=== PATIENT | female | born 1930 | race Caucasian/White ===

== ENCOUNTER 2021-05-22 13:00 | Emergency (ER) | payer OTHER ==
--- OUTSIDE RECORDS SUMMARY | 2021-05-22 13:02 | XMS REPORT | Continuity of Care Document ---
:1930 Author Organization [facility] t Address [address] [place] [address] Care Team Providers Name Role Phone Unavailable Unavailable Unavailable Problems This patient has no known problems. Allergies, Adverse Reactions, Alerts This patient has no known allergies or adverse reactions. Medications This patient has no known medications. Procedures This patient has no known procedures. Encounters Start End Encounter Admission Attending Care Care Encounter Source Date/Time Date/Time Type Type Clinicians Facility Department ID 2021-05-06 2021-05-06 Outpatient [facility] [id number] 00:00:00 00:00:00 [facility] 2021-04-20 2021-04-20 Outpatient [facility] [id number] [facility] Results This patient has no known results.
--- NOTE | 2021-05-22 15:58 | RAD REPORT ---
EXAM DESCRIPTION: CT - Spine Lumbar Wo Con - 05/22/2021 3:29 pm CLINICAL HISTORY: Radiculopathy. fall, back pain COMPARISON: No comparisons TECHNIQUE: Axial noncontrast CT imaging of the lumbar spine was performed with coronal and sagittal re-formatted images. All CT scans are performed using dose optimization technique as appropriate and may include automated exposure control or mA/KV adjustment according to patient size. FINDINGS: No acute lumbar spine fracture seen. No aggressive marrow pattern or malalignment. Paraspinal tissues are normal in thickness. No paraspinal abscess or hematoma seen. Posterior disc bulging is seen throughout the lower levels of the lumbar spine. There is likely a sig nificant central canal stenosis at L5-S1. Cholelithiasis. IMPRESSION: No acute lumbar spine abnormality is discerned. Moderate lower lumbar degenerative changes are present with probable central canal stenosis at L5-S1. Cholelithiasis.
--- NOTE | 2021-05-22 16:01 | RAD REPORT ---
EXAM DESCRIPTION: CT - Pelvis Wo Cont - 05/22/2021 3:29 pm CLINICAL HISTORY: BLUNT TRAUMA Trauma, pelvic pain. COMPARISON: No comparisons TECHNIQUE: All CT scans are performed using dose optimization technique as appropriate and may inclu de automated exposure control or mA/KV adjustment according to patient size. FINDINGS: Mild nondisplaced fracture is seen in the inferior sacrum and coccygeal region. Sacroiliac joints are symmetric and intact. No pelvic free fluid. No pelvic mass or hematoma. Sigmoid diverticulosis is present. IMPRESSION: Mild inferior sacral fracture.
[2021-05-22] MEDS ORDERED: ACETAMINOPHEN 325 MG TABLET ONE (19:40)
[2021-05-22] MEDS ORDERED: MORPHINE 2 MG/ML SYR ONE (19:41)
[2021-05-22] MEDS ORDERED: DIAZEPAM 10 MG/2 ML INJ SYRINGE ONE (19:42)
[2021-05-22] MEDS ORDERED: ONDANSETRON 4 MG/2 ML VIAL ONE (19:42)
--- NOTE | 2021-05-22 20:27 | EDPHYS ---
Physician Documentation [facility] Name: Joanna Bartholomew Age: 89 yrs Sex: Female : 1930 Arrival Date: 05/22/2021 Time: 13:08 Bed 15 Private MD: Lien Greyh ED Physician Lio Holland HPI: 05/22 14:55 This 89 yrs old Female presents to ER via Wheelchair with complaints of Fall jmm Injury. 14:55 Details of fall: The patient fell from an upright position, while walking. Onset: The jmm symptoms/episode began/occurred acutely, 2 day(s) ago. Associated injuries: The patient sustained injury to the low back. The patient has not experienced similar symptoms in the past. Is an 89-year-old female with history of hypertension the presents emerged department with acute onset lower back pain after a fall which occurred while she was attempting to wear socks. Patient states that she slipped landing on her back. Denies LOC, vomiting. Patient does not take blood thinners.. Historical: - Allergies: 13:55 No Known Allergies; ll1 - PMHx: 13:55 Hypertensive disorder; ll1 - PSHx: 13:55 hysterectomy; ll1 - Immunization history:: Client reports receiving the 2nd dose of the Covid vaccine, Flu vaccine is up to date. - Social history:: Smoking status: Patient denies any tobacco usage or history of. ROS: 14:55 Constitutional: Negative for fever, chills, and weight loss, Cardiovascular: Negative jmm for chest pain, palpitations, and edema, Respiratory: Negative for shortness of breath, cough, wheezing, and pleuritic chest pain. 14:55 Back: Positive for injury or acute deformity. 14:55 All other systems are negative. Exam: 14:55 Constitutional: This is a well developed, well nourished patient who is awake, alert, jmm and in no acute distress. Head/Face: atraumatic. Eyes: EOMI, no conjunctival erythema appreciated ENT: Moist Mucus Membranes Neck: Trachea midline, Supple Chest/axilla: Normal chest wall appearance and motion. Cardiovascular: Regular rate and rhythm. No edema appreciated Respiratory: Normal respirations, no respiratory distress appreciated Abdomen/GI: Non distended, soft 14:55 Skin: General appearance color normal MS/ Extremity: Moves all extremities, no obvious deformities appreciated, no edema noted to the lower extremities Neuro: Awake and alert, normal gait Psych: Behavior is normal, Mood is normal, Patient is cooperative and pleasant 14:55 Back: pain, that is mild, of the lumbar area. Vital Signs: 13:56 BP 161 / 82; Pulse 60; Resp 17; Temp 97.2; Pulse Ox 100% ; Weight 65.32 kg; Height 4 ll1 ft. 11 in. (149.86 cm); Pain 10/10; 20:47 BP 154 / 75; Pulse 65; Resp 18; Pulse Ox 98% on R/A; ak2 13:56 Body Mass Index 29.08 (65.32 kg, 149.86 cm) ll1 MDM: 18:52 Patient medically screened. [facility] 20:25 Data reviewed: vital signs, nurses notes. Counseling: I had a detailed discussion with marquise the patient and/or guardian regarding: the historical points, exam findings, and any diagnostic results supporting the discharge/admit diagnosis, radiology results, the need for outpatient follow up, to return to the emergency department if symptoms worsen or persist or if there are any questions or concerns that arise at home. 20:33 ED course: CT reveals sacral fracture. Patient denies any urinary or bowel issues [facility] extensor pollicis longus intact bilateral. I do not suspect cord compression or cauda equina. Patient is advised to follow-up with spine and otherwise given strict return precautions. Patient understood and agrees to plan of care.. 05/22 14:54 Order name: CT Lumbar Spine Wo Con; Complete Time: 18:35 rn 05/22 14:54 Order name: CT Pelvis wo Cont; Complete Time: 18:35 rn 05/22 18:53 Order name: Saline Lock [facility] 05/22 19:47 Order name: Misc. Order [facility] Administered Medications: 19:29 Drug: morphine 2 mg Route: IVP; Site: right antecubital; ak2 19:29 Drug: Zofran (Ondansetron) 4 mg Route: IVP; Site: right antecubital; ak2 19:29 Drug: Valium (diazepam) 2 mg Route: IVP; Site: right antecubital; ak2 19:29 Drug: Tylenol 650 mg Route: PO; ak2 19:47 CANCELLED (Duplicate Order): Valium (diazepam) 5 mg IVP once [facility] Disposition Summary: 05/22/21 20:26 Discharge Ordered Location: Home [facility] Condition: Stable [facility] Diagnosis - Low back pain m - Fracture of Sacrum - Nondisplaced jm Followup: jmm - With: Karlo Grey, - When: 2 - 3 days - Reason: Recheck today's complaints, Continuance of care, Re-evaluation by your physician Discharge Instructions: - Discharge Summary Sheet [facility] - Acute Back Pain, Adult [facility] Forms: - Medication Reconciliation Form [facility] - Thank You Letter [facility] - Antibiotic Education [facility] - Prescription Opioid Use [facility] Prescriptions: - Ultracet 37.5-325 mg Oral Tablet - take 1 tablet by ORAL route every 6 hours - for up to 5 days; do not exceed 8 jmm tablets per day.; 12 tablet; Refills: 0, Product Selection Permitted - orphenadrine citrate 100 mg Oral Tablet Sustained Release - take 1 tablet by ORAL route 2 times per day As needed; 20 tablet; Refills: 0, [facility] Product Selection Permitted Signatures: Dispatcher [employer] EDIván Madrigal PA PA jmm Lewis, Lynsay RN RN ll1 Rajesh Che2 Corrections: (The following items were deleted from the chart) 19:47 19:47 Valium (diazepam) 5 mg IVP once ordered. [facility] mushtaq
--- NOTE | 2021-05-22 20:27 | ER ---
Nurse's Notes [facility] [place], [place] Name: Joanna Bartholomew Age: 89 yrs Sex: Female : 1930 Arrival Date: 05/22/2021 Time: 13:08 Bed 15 Private MD: Karlo Grey Diagnosis: Low back pain;Fracture of Sacrum - Nondisplaced Presentation: 05/22 13:56 Chief complaint: Patient states: Slipped while weighing herself Sunday. Low back pain ll1 since, worse today. Pain radiates into both upper legs. No LOC or blood thinners. Coronavirus screen: Client denies travel out of the [place] in the last 14 days. At this time, the client does not indicate any symptoms associated with coronavirus-19. Ebola Screen: Patient denies travel to an Ebola-affected area in the 21 days before illness onset. No symptoms or risks identified at this time. Initial Sepsis Screen: Does the patient meet any 2 criteria? No. Patient's initial sepsis screen is negative. Does the patient have a suspected source of infection? No. Patient's initial sepsis screen is negative. Risk Assessment: Do you want to hurt yourself or someone else? Patient reports no desire to harm self or others. Onset of symptoms was May 20, 2021. 13:56 Method Of Arrival: Wheelchair ll1 13:56 Acuity: JEAN 3 ll1 Historical: - Allergies: 13:55 No Known Allergies; ll1 - PMHx: 13:55 Hypertensive disorder; ll1 - PSHx: 13:55 hysterectomy; ll1 - Immunization history:: Client reports receiving the 2nd dose of the Covid vaccine, Flu vaccine is up to date. - Social history:: Smoking status: Patient denies any tobacco usage or history of. Screenin:52 Abuse screen: Denies threats or abuse. Nutritional screening: No deficits noted. jd3 Tuberculosis screening: No symptoms or risk factors identified. Fall Risk Ambulatory Aid- None/Bed Rest/Nurse Assist (0 pts). Gait- Normal/Bed Rest/Wheelchair (0 pts) Mental Status- Oriented to own ability (0 pts). Total Montano Fall Scale indicates No Risk (0-24 pts). Assessment: 18:51 General: Appears in no apparent distress. comfortable, Behavior is calm, cooperative, jd3 appropriate for age. Pain: Complains of pain in back and pelvis Quality of pain is described as aching. Neuro: Level of Consciousness is awake, alert, obeys commands, Oriented to person, place, time, situation. Cardiovascular: Denies chest pain, Capillary refill < 3 seconds Patient's skin is warm and dry. Respiratory: Airway is patent Respiratory effort is even, unlabored, Respiratory pattern is regular, symmetrical, Denies cough, shortness of breath. GI: No signs and/or symptoms were reported involving the gastrointestinal system. : No signs and/or symptoms were reported regarding the genitourinary system. EENT: No signs and/or symptoms were reported regarding the EENT system. Derm: Skin is intact, Skin is dry, Skin is normal, Skin temperature is warm. Musculoskeletal: Circulation, motion, and sensation intact. Range of motion: intact in all extremities. Vital Signs: 13:56 BP 161 / 82; Pulse 60; Resp 17; Temp 97.2; Pulse Ox 100% ; Weight 65.32 kg; Height 4 ll1 ft. 11 in. (149.86 cm); Pain 10/10; 20:47 BP 154 / 75; Pulse 65; Resp 18; Pulse Ox 98% on R/A; ak2 13:56 Body Mass Index 29.08 (65.32 kg, 149.86 cm) ll1 ED Course: 13:08 Patient arrived in ED. mr 13:08 Karlo Grey DO is Private Physician. mr 13:55 Arm band placed on. ll1 13:58 Triage completed. ll1 15:28 CT Lumbar Spine Wo Con In Process Unspecified. EDMS 15:29 CT Pelvis wo Cont In Process Unspecified. EDMS 18:34 Patient placed in an exam room, on a stretcher. ll1 18:35 Iván Taylor PA is PHCP. [facility] 18:35 Lio Holland MD is Attending Physician. [facility] 18:36 Ryan Singh RN is Primary Nurse. jd3 18:52 Patient has correct armband on for positive identification. Bed in low position. Call jd3 light in reach. Side rails up X 1. Adult w/ patient. Pulse ox on. NIBP on. 19:30 Primary Nurse role handed off by Ryan Singh RN mw2 20:26 Karlo Grey DO is Referral Physician. m 20:48 IV discontinued. ak2 Administered Medications: 19:29 Drug: morphine 2 mg Route: IVP; Site: right antecubital; ak2 19:29 Drug: Zofran (Ondansetron) 4 mg Route: IVP; Site: right antecubital; ak2 19:29 Drug: Valium (diazepam) 2 mg Route: IVP; Site: right antecubital; ak2 19:29 Drug: Tylenol 650 mg Route: PO; ak2 19:47 CANCELLED (Duplicate Order): Valium (diazepam) 5 mg IVP once [facility] Outcome: 20:26 Discharge ordered by MD. jmm 20:47 Discharged to home ambulatory. ak2 20:47 Condition: good 20:47 Discharge instructions given to patient, family. 20:48 Patient left the ED. ak2 Signatures: Dispatcher [employer] EDMS Iván Taylor PA PA [facility] Lori HarrisiesRyan RN RN Chanda Ferguson 2 Kevin Barnhart RN RN ll1 Rajesh Che fl2
[2021-05-22 20:55] VITALS: TEMP 97.2
[2021-05-22 20:57] VITALS: BP 154/75; O2SAT 98
== END 2021-05-22 20:48 | disposition home or self-care (01) ==
LOC: ER 13:00
DX: S32.10XA Unspecified fracture of sacrum, initial encounter for closed fracture (principal); I10 Essential (primary) hypertension; W01.0XXA Fall on same level from slipping, tripping and stumbling without subsequent striking against object, initial encounter
CPT/HCPCS: 72131; 72192; J3360; J2270; J2405

== ENCOUNTER 2021-06-25 16:01 | Emergency (ER) | payer OTHER ==
--- OUTSIDE RECORDS SUMMARY | 2021-06-25 16:04 | XMS REPORT | Continuity of Care Document ---
:1930 Author Organization [facility] t Address [address] [place] [address] Care Team Providers Name Role Phone Unavailable Unavailable Unavailable Problems This patient has no known problems. Allergies, Adverse Reactions, Alerts This patient has no known allergies or adverse reactions. Medications This patient has no known medications. Procedures This patient has no known procedures. Encounters Start End Encounter Admission Attending Care Care Encounter Source Date/Time Date/Time Type Type Clinicians Facility Department ID 2021-06-21 2021-06-[address] [facility] [id number] [facility] 2021-05-25 2021-05-[address] [facility] [id number] [facility] 2021-05-23 2021-05-[address] [facility] [id number] [facility] 2021-05-06 2021-05-[address] [facility] [id number] [facility] 2021-04-20 2021-04-[address] [facility] [id number] [facility] Results This patient has no known results.
--- NOTE | 2021-06-25 17:09 | RAD REPORT ---
EXAM DESCRIPTION: CT - Head Brain Wo Cont - 06/25/2021 4:45 pm CLINICAL HISTORY: Dizziness COMPARISON: None TECHNIQUE: Computed axial tomography of the head was obtained. IV contrast was not requested. All CT scans are performed using dose optimization technique as appropriate and may include automated exposure control or mA/KV adjustment according to patient size. FINDINGS: An intracranial bleed is not seen . 8 millimeter bony density abuts the right frontal bon e presumably an osteoma. 6 millimeter calcification abuts the right frontal bone The ventricles are normal in caliber. No extra-axial fluid collection is noted. Mild low-density areas within periventricular, deep and subcortical white matter likely represent isc hemic changes secondary to small vessel disease. Fluid within the sinuses/ mastoids is not seen. IMPRESSION: 6 millimeter calcification right frontal lobe may represent a cavernous angioma. Healed cysticercosis is another consideration. 6 millimeter right frontal bone osteoma suspected. If patient's symptoms persist MRI of the brain would be recommended.
[2021-06-25 17:17] LABS: Absolute Lymphocytes (CBC) 1.3 K/uL (0.7-4.9); Basophils % 1.2 % (0-1.3); Hematocrit 39.3 % (36.0-45.0); Lymphocytes % 15.5 % (15.3-44.8); MPV 9.4 fL (7.6-11.3); Protime INR 1.04
[2021-06-25 17:36] LABS: ALT/SGPT 22 U/L (12-78); AST/SGOT 12 U/L (15-37); Albumin 3.6 g/dL (3.4-5.0); Alkaline Phosphatase 92 U/L (45-117); BUN Blood Urea Nitrogen 25 mg/dL (7-18); Bicarbonate 27 mmol/L (21-32); Bilirubin Direct 0.1 mg/dL (0-0.2); Bilirubin Total 0.5 mg/dL (0.2-1.0); Glucose Level 155 mg/dL (74-106); Magnesium 2.5 mg/dL (1.8-2.4); NT PRO-BNP 338 pg/mL (<450); Potassium 3.9 mmol/L (3.5-5.1); Sodium Level 139 mmol/L (136-145); Troponin (Emerg Dept Use Only) < 0.02 ng/mL (0.0-0.045)
--- NOTE | 2021-06-25 18:18 | RAD REPORT ---
EXAM DESCRIPTION: Swetha Single View06/25/2021 5:21 pm CLINICAL HISTORY: Hypertension COMPARISON: 2014 FINDINGS: The lungs appear clear of acute infiltrate. The heart is mildly enlarged. Mitral annulus calcification IMPRESSION: No acute abnormalities displayed
--- NOTE | 2021-06-25 18:30 | RAD REPORT ---
EXAM DESCRIPTION: Guy Angio06/25/2021 6:17 pm CLINICAL HISTORY: Dizziness COMPARISON: None TECHNIQUE: 50 cc Isovue 370 was administered intravenously. 3D MIP reconstruction performed All CT scans are performed using dose optimization technique as appropriate and may include automated exposure control or mA/KV adjustment according to patient size. FINDINGS: Mild mostly calcified plaque is present within common carotid, internal carotid and tester compressed gases al carotid arteries bilaterally. Vertebral arteries are codominant containing mild areas of narrowing. No dissection noted. IMPRESSION: Mild plaque within in the carotid arteries. NASCET criteria used. Mild 0-49% stenosis Moderate 50-69% stenosis Severe 70-99% stenosis
--- NOTE | 2021-06-25 18:35 | RAD REPORT ---
EXAM DESCRIPTION: CTHead angio06/25/2021 6:17 pm CLINICAL HISTORY: Dizziness COMPARISON: None TECHNIQUE: CT angiogram of the head was obtained. 3D MIPS reconstruction performed. All CT scans are performed using dose optimization technique as appropriate and may include automated exposure control or mA/KV adjustment according to patient size. FINDINGS: Mild narrowing involves portions of the basilar, internal carotid, anterior cerebral, midd le cerebral and posterior cerebral arteries. A high-grade stenosis is not seen. No occlusion No aneurysm IMPRESSION: Mild atherosclerotic disease. No acute abnormality is displayed
[2021-06-25 19:18] LABS: Urine Blood Trace-intact (Negative); Urine Glucose Negative (Negative); Urine Protein Negative (Negative); Urine Specific Gravity 1.015 (1.005-1.030)
[2021-06-25 19:53] LABS: Urine Bacteria LOADED /HPF (<20); Urine RBC <5 /HPF (NONE SEEN)
--- NOTE | 2021-06-25 20:03 | EDPHYS ---
Physician Documentation [facility] Name: Joanna Bartholomew Age: 89 yrs Sex: Female : 1930 Arrival Date: 06/25/2021 Time: 16:03 Bed 23 Private MD: ED Physician Aleksandr Mg HPI: 06/25 16:25 This 89 yrs old Female presents to ER via EMS with complaints of Dizziness. cp 16:25 The patient presents with dizziness, lightheadedness. Onset: The symptoms/episode cp began/occurred today. 16:25 Context: occurred at home, occurred while the patient was sitting, just prior to the cp episode the patient experienced no apparent symptoms. 16:25 Modifying factors: the symptoms are aggravated by nothing. Associated signs and cp symptoms: Pertinent negatives: abdominal pain, chest pain, diaphoresis, focal weakness, headache, near-syncope, palpitations, syncope, vomiting, diarrhea. Patient's baseline: Neuro: alert and fully oriented, Motor: no deficits, Ambulation: walks without assistance, Speech: normal. Historical: - Allergies: 16:41 No Known Allergies; bp - PMHx: 16:41 Hypertensive disorder; bp - PSHx: 16:41 hysterectomy; bp - Immunization history:: Adult Immunizations up to date. - Social history:: Smoking status: unknown. ROS: 16:30 Constitutional: Negative for body aches, chills, fever, poor PO intake. cp 16:30 Eyes: Negative for injury, pain, redness, and discharge. cp 16:30 ENT: Negative for drainage from ear(s), ear pain, sinus congestion, sinus pain, sore throat, difficulty swallowing, difficulty handling secretions. 16:30 Cardiovascular: Negative for chest pain, edema, palpitations. 16:30 Respiratory: Negative for cough, shortness of breath, wheezing. 16:30 Abdomen/GI: Negative for abdominal pain, nausea, vomiting, and diarrhea, black/tarry stool, rectal bleeding. 16:30 Neuro: Positive for dizziness, Negative for altered mental status, headache, numbness, syncope, weakness. 16:30 All other systems are negative. Exam: 16:35 Constitutional: The patient appears in no acute distress, alert, awake, cp non-diaphoretic, non-toxic, well developed, well nourished. 16:35 Head/Face: Normocephalic, atraumatic. cp 16:35 Eyes: Periorbital structures: appear normal, Pupils: equal, round, and reactive to light and accomodation, Extraocular movements: intact throughout, Conjunctiva: normal, no exudate, no injection, Sclera: no appreciated abnormality, Lids and lashes: appear normal, bilaterally. 16:35 ENT: External ear(s): are unremarkable, Ear canal(s): are normal, clear, TM's: dullness, bilaterally, Nose: is normal, Mouth: Lips: moist, Oral mucosa: pink and intact, moist, Posterior pharynx: Airway: no evidence of obstruction, patent. 16:35 Neck: ROM/movement: is normal, is supple, without pain, no range of motions limitations. 16:35 Chest/axilla: Inspection: normal, Palpation: is normal, no crepitus, no tenderness. 16:35 Respiratory: the patient does not display signs of respiratory distress, Respirations: normal, no use of accessory muscles, no retractions, labored breathing, is not present, Breath sounds: are clear throughout, no decreased breath sounds, no stridor, no wheezing. 16:35 Abdomen/GI: Inspection: abdomen appears normal, Palpation: abdomen is soft and non-tender, in all quadrants. 16:35 Neuro: Orientation: to person, place \T\ time. Mentation: is normal, Cerebellar function: Romberg testing is negative, normal finger to nose testing, Motor: moves all fours, strength is normal, Sensation: is normal. 16:35 Cardiovascular: Edema: is not appreciated, JVD: is not appreciated. cp 17:05 Cardiovascular: Rate: bradycardic, Rhythm: regular. cp 17:21 ECG was reviewed by the Attending Physician. cp Vital Signs: 16:37 BP 90 / 50; bp 17:00 BP 129 / 60; Pulse 54; Resp 16; Temp 98; Pulse Ox 99% ; bp 18:15 BP 129 / 51; Pulse 116; Resp 15; Pulse Ox 94% on R/A; bp 19:44 BP 139 / 59; Pulse 62; Resp 16; Pulse Ox 96% on R/A; zb 20:15 BP 147 / 67 Supine; Pulse 57; Resp 18; Pulse Ox 96% ; zb 20:20 BP 160 / 76 Sitting; Pulse 64; Resp 16; Pulse Ox 97% on R/A; zb 20:23 BP 165 / 91; Pulse 61; Resp 16; Pulse Ox 100% on R/A; zb MDM: 16:05 Patient medically screened. ny 17:00 Differential diagnosis: cardiac arrhythmia, GI bleed, hypovolemia, idiopathic cp dizziness, sepsis, syncope, TIA. 20:00 Data reviewed: vital signs, nurses notes, lab test result(s), EKG, radiologic studies, cp CT scan, plain films. 20:00 Test interpretation: by ED physician or midlevel provider: ECG, plain radiologic cp studies. 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 Response to treatment: the patient's symptoms have markedly improved after treatment, VSS. Patient reports symptoms markedly improved. Will discharge to home for continued monitoring. 06/25 16:17 Order name: Basic Metabolic Panel 06/25 16:17 Order name: CBC with Diff; Complete Time: 18:37 06/25 18:37 Interpretation: Normal except: SOLOMON% 77.3. 06/25 16:17 Order name: LFT's; Complete Time: 18:37 cp 06/25 18:37 Interpretation: Normal except: AST 12. 06/25 16:17 Order name: Magnesium; Complete Time: 18:37 cp 06/25 16:17 Order name: NT PRO-BNP; Complete Time: 18:37 cp 06/25 16:17 Order name: PT-INR; Complete Time: 18:37 06/25 16:17 Order name: Troponin (emerg Dept Use Only); Complete Time: 18:37 cp 06/25 16:17 Order name: XRAY Chest (1 view); Complete Time: 18:37 cp 06/25 16:17 Order name: CT Head Brain wo Cont; Complete Time: 17:18 cp 06/25 17:19 Interpretation: Report reviewed. 06/25 16:17 Order name: Urine Microscopic Only; Complete Time: 19:58 cp 06/25 19:58 Interpretation: Normal except: UWBC 5-10; UBACT LOADED. cp 06/25 16:18 Order name: Basic Metabolic Panel; Complete Time: 18:37 EDMS 06/25 18:37 Interpretation: Normal except: GLUC 155; BUN 25; GFR 55. cp 06/25 17:20 Order name: CT Head Angio; Complete Time: 18:37 cp 06/25 18:38 Interpretation: Report reviewed. cp 06/25 19:18 Order name: Urine Dipstick-Ancillary; Complete Time: 19:31 EDMS 06/25 19:32 Interpretation: Normal except: UBLD Trace-intact; UESTR Trace. cp 06/25 19:55 Order name: Urine Culture EDMS 06/25 16:17 Order name: EKG; Complete Time: 16:18 cp 06/25 16:17 Order name: Cardiac monitoring; Complete Time: 17:18 cp 06/25 16:17 Order name: EKG - Nurse/Tech; Complete Time: 17:17 cp 06/25 16:17 Order name: IV Saline Lock; Complete Time: 17:17 cp 06/25 16:17 Order name: Labs collected and sent; Complete Time: 17:17 cp 06/25 16:17 Order name: O2 Per Protocol; Complete Time: 17:17 cp 06/25 16:17 Order name: O2 Sat Monitoring; Complete Time: 17:17 cp 06/25 16:17 Order name: Urine Dipstick-Ancillary (obtain specimen); Complete Time: 19:17 cp 06/25 17:20 Order name: CT Neck Angio; Complete Time: 18:37 cp 06/25 18:38 Interpretation: Report reviewed. cp 06/25 18:39 Order name: Orthostatics; Complete Time: 20:23 cp 06/25 19:32 Order name: Misc. Order: ambulate patient; Complete Time: 20:05 cp EC:21 Rate is 54 beats/min. Rhythm is regular. AL interval is normal. QRS interval is normal. cp QT interval is normal. T waves are Inverted in lead aVR. Interpreted by me. Reviewed by me. Administered Medications: 18:45 Drug: NS 0.9% 250 ml Route: IV; Rate: bolus; Site: left wrist; bp 20:26 Follow up: Response: No adverse reaction; IV Status: Completed infusion; IV Intake: zb 250ml 20:15 Drug: Rocephin - (cefTRIAXone) 1 grams Route: IVPB; Infused Over: 30 mins; Site: left zb hand; 20:26 Follow up: Response: No adverse reaction; IV Status: Completed infusion; IV Intake: 10mlzb Disposition Summary: 06/25/21 20:02 Discharge Ordered Location: Home cp Problem: new cp Symptoms: have improved cp Condition: Stable cp Diagnosis - Dizziness and giddiness cp - UTI/ Urinary tract infection, site not specified cp Followup: cp - With: Private Physician - When: 2 - 3 days - Reason: Recheck today's complaints Discharge Instructions: - Discharge Summary Sheet cp - Dizziness cp - Urinary Tract Infection, Adult cp Forms: - Medication Reconciliation Form cp - Thank You Letter cp - Antibiotic Education cp - Prescription Opioid Use cp Prescriptions: - Augmentin 875-125 mg Oral Tablet - take 1 tablet by ORAL route every 12 hours for 7 days; 14 tablet; Refills: 0, cp Product Selection Permitted - Meclizine 25 mg Oral Tablet - take 1 tablet by ORAL route every 8 hours As needed; 30 tablet; Refills: 0, cp Product Selection Permitted - Zofran 4 mg Oral Tablet - take 1 tablet by ORAL route every 12 hours As needed; 20 tablet; Refills: 0, cp Product Selection Permitted Addendum: 06/27/2021 15:11 Co-signature as Attending Physician, Aleksandr Mg MD I agree with the assessment and c ruano plan of care. Signatures: Dispatcher [employer] Aleksandr Syk MD MD cha Page, Corey PA PA Chavo Diggs RN RN bp Brown, Zipporah, RN RN zb Corrections: (The following items were deleted from the chart) 06/26 16:26 06/25 16:35 Neuro: Orientation: to person, place \T\ time. Mentation: is normal, cp Cerebellar function: Romberg testing is negative, normal finger to nose testing, Motor: moves all fours, strength is normal, Sensation: is normal, cp
--- NOTE | 2021-06-25 20:03 | ER ---
Nurse's Notes [facility] Name: Joanna Bartholomew Age: 89 yrs Sex: Female : 1930 Arrival Date: 06/25/2021 Time: 16:03 Bed 23 Private MD: Diagnosis: Dizziness and giddiness;UTI/ Urinary tract infection, site not specified Presentation: 06/25 16:37 Chief complaint: EMS states: DIZZINESS. Coronavirus screen: At this time, the client bp does not indicate any symptoms associated with coronavirus-19. Ebola Screen: No symptoms or risks identified at this time. Initial Sepsis Screen: Does the patient meet any 2 criteria? No. Patient's initial sepsis screen is negative. Does the patient have a suspected source of infection? No. Patient's initial sepsis screen is negative. Risk Assessment: Do you want to hurt yourself or someone else? Patient reports no desire to harm self or others. Onset of symptoms is unknown. Care prior to arrival: IV initiated. 20 GA, in the left hand. 16:37 Method Of Arrival: EMS: [facility] bp 16:37 Acuity: JEAN 3 bp Triage Assessment: 16:41 General: Appears in no apparent distress. comfortable, obese, Behavior is cooperative, bp appropriate for age, anxious. Pain: Denies pain. EENT: No deficits noted. Neuro: Level of Consciousness is awake, alert, obeys commands, Oriented to Appropriate for age Reports dizziness. Cardiovascular: No deficits noted. Respiratory: No deficits noted. GI: No signs and/or symptoms were reported involving the gastrointestinal system. : No signs and/or symptoms were reported regarding the genitourinary system. Derm: No signs and/or symptoms reported regarding the dermatologic system. Musculoskeletal: No deficits noted. Historical: - Allergies: 16:41 No Known Allergies; bp - PMHx: 16:41 Hypertensive disorder; bp - PSHx: 16:41 hysterectomy; bp - Immunization history:: Adult Immunizations up to date. - Social history:: Smoking status: unknown. Screenin:42 Abuse screen: Denies threats or abuse. Denies injuries from another. Nutritional bp screening: No deficits noted. Tuberculosis screening: No symptoms or risk factors identified. Fall Risk None identified. Assessment: 16:42 General: SEE TRIAGE NOTE. bp 17:04 Reassessment: No changes from previously documented assessment. PT RETURNED FROM CT. bp 18:15 Reassessment: PT RETURNED FROM CT. bp 19:49 Reassessment: Patient appears in no apparent distress at this time. Patient and/or zb family updated on plan of care and expected duration. Pain level reassessed. Patient is alert, oriented x 3, equal unlabored respirations, skin warm/dry/pink. family remains at bedside. 20:23 Reassessment: patient ambulated in room denies dizziness at this time. son at bedside. zb 20:25 Reassessment: D/c pending clothes for patient and patients ride. zb Vital Signs: 16:37 BP 90 / 50; bp 17:00 BP 129 / 60; Pulse 54; Resp 16; Temp 98; Pulse Ox 99% ; bp 18:15 BP 129 / 51; Pulse 116; Resp 15; Pulse Ox 94% on R/A; bp 19:44 BP 139 / 59; Pulse 62; Resp 16; Pulse Ox 96% on R/A; zb 20:15 BP 147 / 67 Supine; Pulse 57; Resp 18; Pulse Ox 96% ; zb 20:20 BP 160 / 76 Sitting; Pulse 64; Resp 16; Pulse Ox 97% on R/A; zb 20:23 BP 165 / 91; Pulse 61; Resp 16; Pulse Ox 100% on R/A; zb ED Course: 16:03 Patient arrived in ED. em1 16:05 Aleksandr Cullen PA is PHCP. cp 16:05 Aleksandr Mg MD is Attending Physician. cp 16:11 Chavo Shankar, ASHANTI is Primary Nurse. bp 16:41 Triage completed. bp 16:42 Arm band placed on. bp 16:42 Patient has correct armband on for positive identification. Bed in low position. Call bp light in reach. Side rails up X2. 16:43 Maintain EMS IV. Dressing intact. Good blood return noted. Site clean \T\ dry. Gauge \T\ bp site: 20 GAUGE LEFT HAND. 16:43 CT Head Brain wo Cont Sent. bp 16:44 CT Head Brain wo Cont In Process Unspecified. EDMS 17:18 XRAY Chest (1 view) Sent. bp 17:22 XRAY Chest (1 view) In Process Unspecified. EDMS 18:17 CT Head Angio In Process Unspecified. EDMS 18:17 CT Neck Angio In Process Unspecified. EDMS 19:15 Straight cath inserted, using sterile technique, 16 Fr. Specimen obtained. Returned bp cloudy urine. Patient tolerated well. 19:44 Report received from Perry Tony RN. zb 19:48 Primary Nurse role handed off by Chavo Shankar, ASHANTI chávez 19:48 Sharla Terrell, RN is Primary Nurse. zb 20:25 No provider procedures requiring assistance completed. IV discontinued, intact, zb bleeding controlled, No redness/swelling at site. Administered Medications: 18:45 Drug: NS 0.9% 250 ml Route: IV; Rate: bolus; Site: left wrist; bp 20:26 Follow up: Response: No adverse reaction; IV Status: Completed infusion; IV Intake: zb 250ml 20:15 Drug: Rocephin - (cefTRIAXone) 1 grams Route: IVPB; Infused Over: 30 mins; Site: left zb hand; 20:26 Follow up: Response: No adverse reaction; IV Status: Completed infusion; IV Intake: 10mlzb Intake: 20:26 IV: 10ml; Total: 10ml. zb 20:26 IV: 250ml; Total: 260ml. zb Outcome: 20:02 Discharge ordered by MD. cp 20:25 Discharged to home via wheelchair, with family. zb 20:25 Condition: stable 20:25 Discharge instructions given to patient, family, Instructed on discharge instructions, follow up and referral plans. medication usage, Demonstrated understanding of instructions, follow-up care, medications, Prescriptions given X 3. 20:51 Patient left the ED. zb Addendum: 06/29/2021 09:52 Addendum: Culture Results: Positive urine culture. No further action required. Bacteria a a5 sensitive to prescribed antibiotic. Signatures: Dispatcher [employer] Asim Dow em1 Aaliyah Mckeon RN RN aa5 Aleksandr Cullen PA PA cp Chavo Shankar, Sharla Phelps RN, RN RN zdino
[2021-06-25] MEDS ORDERED: CEFTRIAXONE/SWI 1gm 1 GM/10 ML SYR ONE (20:33)
[2021-06-25 21:06] VITALS: TEMP 98
[2021-06-25 21:21] VITALS: BP 165/91; O2SAT 100
--- NOTE | 2021-06-27 17:00 | EKG ---
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
== END 2021-06-25 20:51 | disposition home or self-care (01) ==
LOC: ER 16:01
DX: N39.0 Urinary tract infection, site not specified (principal); I10 Essential (primary) hypertension
CPT/HCPCS: 96365; 93005; 87088; 85025; 87086; 80048; 36415; 83735; 85610; 80076; 87077; 87186; 84484; 83880; 70450; 70496; 70498; 71045; 51702; 96375; 99284; 96366; Q9967; J0696; 81003; 81015